=== PATIENT | male | born 1935 | race Caucasian/White ===

== ENCOUNTER 2024-01-26 05:56 | Inpatient (IN) | payer MEDICARE, BC ==
[~2024-01-26] VITALS: Ht 172.7 cm; Wt 79.9 kg
[2024-01-26 06:50] LABS: BASOPHILS % (AUTO) 0.6 % (0.0-2.0); EOSINOPHILS # (AUTO) 0.2 K/uL (0.0-0.7); EOSINOPHILS % (AUTO) 2.5 % (0.0-6.0); HEMATOCRIT 37 % (39-51); HEMOGLOBIN 12.3 g/dL (13.5-17.5); LYMPHOCYTES # (AUTO) 1.6 K/uL (0.8-4.8); LYMPHOCYTES % (AUTO) 20.4 % (20.0-44.0); MEAN CORPUSCULAR HEMOGLOBIN 32 PG (26.0-33.0); MEAN CORPUSCULAR HGB CONC 33 g/dl (31.0-36.0); MEAN CORPUSCULAR VOLUME 96 fL (80-96); MONOCYTES # (AUTO) 0.6 K/uL (0.1-1.30); MONOCYTES % (AUTO) 7.4 % (2.0-12.0); NEUTROPHILS # (AUTO) 5.3 K/uL (1.8-8.9); NEUTROPHILS % (AUTO) 69.1 % (43.0-81.0); PLATELET COUNT (AUTO) 204 K/uL (150-450); RED BLOOD CELL COUNT(AUTO) 3.92 MIL/uL (4.5-6.0); WHITE BLOOD COUNT (AUTO) 7.7 K/uL (4.3-11.0)
[2024-01-26 07:01] LABS: CALCIUM, SERUM 9.3 mg/dL (8.5-10.1); CARBON DIOXIDE 23 mmol/L (21-32); CHLORIDE 107 mmol/L (98-107); CREATININE 1.6 mg/dL (0.6-1.3); GLUCOSE 136 mg/dL (74-106); POTASSIUM 3.4 mmol/L (3.5-5.1); SODIUM SERUM 143 mmol/L (136-145); UREA NITROGEN, BLOOD 20 mg/dL (7-18)
[2024-01-26 07:02] LABS: INR 1.03 (0.91-1.10); PARTIAL THROMBOPLASTIN TIME 25.4 SEC (24.3-34.3); PROTHROMBIN TIME 10.9 SECS (9.2-11.1)
[2024-01-26 07:10] LABS: LACTIC ACID 3.4 mmol/L (0.4-2.0)
[2024-01-26] MEDS ORDERED: diphenhydrAMINE HCL 50 MG/ML VIAL ONE ×2 (07:10→08:00)
[2024-01-26] MEDS ORDERED: LORAZEPAM INJ 2 MG/ML VIAL ONE ×2 (07:11→08:01)
[2024-01-26 07:13] LABS: THYROID STIMULATING HORMONE 6.224 uIU/mL (0.358-3.74)
[2024-01-26 07:15] LABS: ALANINE AMINOTRANSFERASE 17 U/L (12-78); ALBUMIN 3.5 g/dL (3.4-5.0); ALKALINE PHOSPHATASE 71 U/L (46-116); ASPARTATE AMINOTRANSFERASE 15 U/L (15-37); BILIRUBIN,DIRECT 0.1 mg/dL (0.0-0.2); BILIRUBIN,TOTAL 0.5 mg/dL (0.2-1.0); TOTAL PROTEIN, SERUM 7.2 g/dL (6.4-8.2)
[2024-01-26] MEDS: diphenhydrAMINE HCL 50 MG/ML VIAL IV ONE ×2 (07:18→08:00)
[2024-01-26] MEDS: LORAZEPAM INJ 2 MG/ML VIAL IV ONE ×2 (07:18→08:00)
[2024-01-26 08:00] LABS: APPEARANCE,URINE CLEAR (CLEAR); BILIRUBIN,URINE NEGATIVE (NEGATIVE); BLOOD, URINE TRACE-INTA Ery/uL (NEGATIVE); COLOR,URINE YELLOW (YELLOW); KETONES,URINE NEGATIVE (NEGATIVE); LEUKOCYTE ESTERASE ,URINE NEGATIVE (NEGATIVE); NITRITE, URINE NEGATIVE (NEGATIVE); PH,URINE 5.5 (5.0-8.0); PROTEIN,URINE TRACE mg/dl (NEGATIVE); UGLUCOSE NEGATIVE (NEGATIVE); UROBILINOGEN,URINE 0.2 EU/dL (0.2)
[2024-01-26] MEDS: IV NS 0.9% 1,000 ML BAG IV ONE (08:00)
[2024-01-26 08:02] LABS: ADD URINE CULTURE NO; BACTERIA,URINE Rare /HPF (None Seen); RBC,URINE 0-2 /HPF (0-2); SQUAMOUS EPITHELIAL CELL,UR Few /HPF (None Seen); WBC,URINE 0-2 /HPF (0-3)
[2024-01-26] MEDS ORDERED: MIRT-90 PO (08:14)
[2024-01-26] MEDS ORDERED: ESCI20TA PO (08:14)
[2024-01-26] MEDS ORDERED: OMEP20CA15 PO (08:14)
[2024-01-26] MEDS ORDERED: MEMA1CAP3 PO (08:14)
[2024-01-26] MEDS ORDERED: LMFO1TAB PO (08:14)
[2024-01-26] MEDS ORDERED: DIVA125T32 PO (08:14)
[2024-01-26] MEDS ORDERED: TAMS-12 PO (08:14)
[2024-01-26 08:28] LABS: AMPHETAMINE, URINE NEGATIVE (NEGATIVE); BARBITURATE, URINE NEGATIVE (NEGATIVE); BENZODIAZEPINE, URINE NEGATIVE (NEGATIVE); CANNABINOID, URINE NEGATIVE (NEGATIVE); COCCAINE, URINE NEGATIVE (NEGATIVE); OPIATE, URINE NEGATIVE (NEGATIVE); PHENCYCLIDINE SCREEN,URINE NEGATIVE (NEGATIVE)
[2024-01-26] MEDS ORDERED: MAG HYDROX/AL HYDROX/SIMETH 30 ML UDC PO PRN (11:00)
[2024-01-26] MEDS: VALPROATE IV ONE (11:00)
[2024-01-26] MEDS ORDERED: ONDANSETRON HCL/PF 4 MG/2 ML VIAL IVP PRN (11:00)
[2024-01-26] MEDS ORDERED: MAGNESIUM HYDROXIDE 30 ML UDC PO PRN (11:00)
[2024-01-26] MEDS ORDERED: Z GUARD REMEDY 4 OZ OINT TP PRN (11:00)
[2024-01-26] MEDS: D5W IV ONE (11:00)
[2024-01-26] MEDS ORDERED: ACETAMINOPHEN 325 MG TABLET PO PRN (11:00)
[2024-01-26] MEDS: TAMSULOSIN 0.4 MG CAP.SR.24H PO SCH (12:30)
[2024-01-26] MEDS: ENOXAPARIN SODIUM 30 MG/0.3 ML DISP.SYRIN SQ SCH (12:45)
[2024-01-26] MEDS ORDERED: ENOXAPARIN SODIUM 30 MG/0.3 ML DISP.SYRIN ONE (12:50)
[2024-01-26] MEDS ORDERED: TAMSULOSIN 0.4 MG CAP.SR.24H ONE (12:51)
[2024-01-26 17:53] VITALS: BP 158/77; TEMP 99.3; O2SAT 100
[2024-01-26] MEDS: MIRTAZAPINE 15 MG TABLET PO SCH (18:36)
[2024-01-26] MEDS: MEMANTINE HCL 5 MG TABLET PO SCH (18:36)
[2024-01-26 21:00] VITALS: BP 145/71; TEMP 97.6; O2SAT 100
[2024-01-26] MEDS: OLANZAPINE 10 MG VIAL IM ONE (21:30)
[2024-01-26] MEDS: DONEPEZIL 5 MG TABLET PO SCH (21:59)
[2024-01-26] MEDS: POTASSIUM CHLORIDE 10 MEQ/50 ML PREMIXED IVPB FOR PERIPHERAL LINE IV ONE (23:15)
[2024-01-27 01:00] VITALS: BP 152/72; TEMP 97.7; O2SAT 100
[2024-01-27 05:00] VITALS: BP 114/76; TEMP 97.6; O2SAT 94
[2024-01-27 07:44] LABS: BASOPHILS # (AUTO) 0.1 K/uL (0.0-0.2); BASOPHILS % (AUTO) 0.7 % (0.0-2.0); EOSINOPHILS # (AUTO) 0.1 K/uL (0.0-0.7); EOSINOPHILS % (AUTO) 0.7 % (0.0-6.0); HEMATOCRIT 35 % (39-51); LYMPHOCYTES # (AUTO) 1.4 K/uL (0.8-4.8); LYMPHOCYTES % (AUTO) 14.8 % (20.0-44.0); MEAN CORPUSCULAR HEMOGLOBIN 33 PG (26.0-33.0); MEAN CORPUSCULAR HGB CONC 34 g/dl (31.0-36.0); MEAN CORPUSCULAR VOLUME 96 fL (80-96); MONOCYTES # (AUTO) 0.7 K/uL (0.1-1.30); MONOCYTES % (AUTO) 7.8 % (2.0-12.0); NEUTROPHILS # (AUTO) 7.1 K/uL (1.8-8.9); PLATELET COUNT (AUTO) 224 K/uL (150-450); RED BLOOD CELL COUNT(AUTO) 3.66 MIL/uL (4.5-6.0); RED CELL DISTRIBUTION WIDTH 14.5 % (11.5-15.0); WHITE BLOOD COUNT (AUTO) 9.3 K/uL (4.3-11.0)
[2024-01-27 07:48] LABS: CHOLESTEROL 236 mg/dL (<200); HDL CHOLESTEROL 48 mg/dL (40-60); LDL 135 mg/dL (0-99); TRIGLYCERIDES 127 mg/dL (30-150)
[2024-01-27 08:05] LABS: CALCIUM, SERUM 9.2 mg/dL (8.5-10.1); CARBON DIOXIDE 24 mmol/L (21-32); CHLORIDE 108 mmol/L (98-107); CREATININE 1.4 mg/dL (0.6-1.3); GLUCOSE 90 mg/dL (74-106); MAGNESIUM 2.1 mg/dL (1.8-2.4); PHOSPHORUS 2.8 mg/dL (2.5-4.9); POTASSIUM 3.5 mmol/L (3.5-5.1); SODIUM SERUM 143 mmol/L (136-145); UREA NITROGEN, BLOOD 16 mg/dL (7-18)
[2024-01-27] MEDS: PANTOPRAZOLE 40 MG VIAL IV SCH (08:40)
[2024-01-27 09:00] VITALS: BP 151/91; TEMP 98.2; O2SAT 97
[2024-01-27] MEDS ORDERED: OMEPRAZOLE 20 MG CAPSULE.DR PO SCH (09:00)
[2024-01-27] MEDS: ESCITALOPRAM OXALATE (10 MG) 10 MG TABLET PO SCH (09:00)
[2024-01-27] MEDS: DIVALPROEX SODIUM 125 MG TABLET.DR PO SCH (09:00)
[2024-01-27 13:00] VITALS: BP 146/78; TEMP 97.7; O2SAT 98
[2024-01-27 17:00] VITALS: BP 106/68; TEMP 98.2; O2SAT 98
[2024-01-27] MEDS: LORAZEPAM INJ 2 MG/ML VIAL IV PRN (19:13)
[2024-01-27 20:30] VITALS: BP 99/62; TEMP 97.7; O2SAT 98
[2024-01-28 04:00] VITALS: BP 147/69; TEMP 98.6; O2SAT 96
[2024-01-28] MEDS: DIVALPROEX SODIUM 250 MG TABLET.DR PO SCH (09:09)
[2024-01-28 11:37] LABS: BASOPHILS # (AUTO) 0.1 K/uL (0.0-0.2); BASOPHILS % (AUTO) 0.7 % (0.0-2.0); EOSINOPHILS # (AUTO) 0.2 K/uL (0.0-0.7); EOSINOPHILS % (AUTO) 3.1 % (0.0-6.0); HEMATOCRIT 37 % (39-51); HEMOGLOBIN 12.2 g/dL (13.5-17.5); LYMPHOCYTES # (AUTO) 1.5 K/uL (0.8-4.8); LYMPHOCYTES % (AUTO) 21.9 % (20.0-44.0); MEAN CORPUSCULAR HEMOGLOBIN 32 PG (26.0-33.0); MEAN CORPUSCULAR HGB CONC 33 g/dl (31.0-36.0); MEAN CORPUSCULAR VOLUME 97 fL (80-96); MONOCYTES # (AUTO) 0.6 K/uL (0.1-1.30); MONOCYTES % (AUTO) 8.5 % (2.0-12.0); NEUTROPHILS # (AUTO) 4.6 K/uL (1.8-8.9); NEUTROPHILS % (AUTO) 65.8 % (43.0-81.0); PLATELET COUNT (AUTO) 196 K/uL (150-450); RED BLOOD CELL COUNT(AUTO) 3.82 MIL/uL (4.5-6.0); RED CELL DISTRIBUTION WIDTH 14.5 % (11.5-15.0); WHITE BLOOD COUNT (AUTO) 7.1 K/uL (4.3-11.0)
[2024-01-28 11:52] LABS: CREATINE KINASE, TOTAL 881 U/L (39-308)
[2024-01-28 12:01] LABS: ALANINE AMINOTRANSFERASE 16 U/L (12-78); ALBUMIN 3.2 g/dL (3.4-5.0); ALKALINE PHOSPHATASE 65 U/L (46-116); ASPARTATE AMINOTRANSFERASE 41 U/L (15-37); BILIRUBIN,TOTAL 0.5 mg/dL (0.2-1.0); CARBON DIOXIDE 24 mmol/L (21-32); CHLORIDE 108 mmol/L (98-107); CREATININE 1.4 mg/dL (0.6-1.3); GLUCOSE 109 mg/dL (74-106); MAGNESIUM 2.1 mg/dL (1.8-2.4); PHOSPHORUS 2.8 mg/dL (2.5-4.9); POTASSIUM 3.3 mmol/L (3.5-5.1); SODIUM SERUM 140 mmol/L (136-145); TOTAL PROTEIN, SERUM 6.8 g/dL (6.4-8.2); UREA NITROGEN, BLOOD 20 mg/dL (7-18)
[2024-01-28 13:09] LABS: APPEARANCE,URINE TURBID (CLEAR); BILIRUBIN,URINE NEGATIVE (NEGATIVE); BLOOD, URINE NEGATIVE Ery/uL (NEGATIVE); COLOR,URINE YELLOW (YELLOW); KETONES,URINE NEGATIVE (NEGATIVE); LEUKOCYTE ESTERASE ,URINE NEGATIVE (NEGATIVE); NITRITE, URINE NEGATIVE (NEGATIVE); PROTEIN,URINE TRACE mg/dl (NEGATIVE); UGLUCOSE NEGATIVE (NEGATIVE); UROBILINOGEN,URINE 0.2 EU/dL (0.2)
[2024-01-28 13:27] LABS: CREATININE, URINE 335.9 MG/DL (30.0-125.0); URINE TOTAL PROTEIN 52.7 mg/dL (0-11.9)
[2024-01-28 13:39] LABS: ADD URINE CULTURE NO; BACTERIA,URINE None seen /HPF (None Seen); RBC,URINE NONE SEEN /HPF (0-2); URINE AMORPHOUS URATE Many /HPF (None Seen); WBC,URINE NONE SEEN /HPF (0-3)
[2024-01-28 13:42] LABS: EOSINOPHIL,URINE None Seen
[2024-01-28 13:44] LABS: SQUAMOUS EPITHELIAL CELL,UR None Seen /HPF (None Seen)
[2024-01-28 16:00] VITALS: BP 94/62; TEMP 98.5; O2SAT 95
[2024-01-28] MEDS: ATORVASTATIN 40 MG TABLET PO SCH (21:56)
[2024-01-29 00:06] VITALS: BP 94/62; TEMP 98.5; O2SAT 95
[2024-01-29 07:30] VITALS: BP 169/81; TEMP 97.5; O2SAT 97
[2024-01-29] MEDS: ASPIRIN 81 MG TAB.CHEW PO SCH (08:08)
[2024-01-29] MEDS: PANTOPRAZOLE 40 MG TABLET.DR PO SCH (08:08)
[2024-01-29 08:30] VITALS: BP 155/84
[2024-01-29 15:17] LABS: CALCIUM, SERUM 8.9 mg/dL (8.5-10.1); CARBON DIOXIDE 23 mmol/L (21-32); CHLORIDE 105 mmol/L (98-107); CREATININE 1.6 mg/dL (0.6-1.3); GLUCOSE 111 mg/dL (74-106); POTASSIUM 3.5 mmol/L (3.5-5.1); SODIUM SERUM 139 mmol/L (136-145); UREA NITROGEN, BLOOD 19 mg/dL (7-18)
[2024-01-29 20:00] VITALS: BP 149/69; TEMP 97.8; O2SAT 98
[2024-01-30 08:00] VITALS: BP 150/83; TEMP 98.2; O2SAT 98
[2024-01-30 08:07] LABS: CARBON DIOXIDE 24 mmol/L (21-32); CHLORIDE 106 mmol/L (98-107); CREATININE 1.5 mg/dL (0.6-1.3); GLUCOSE 87 mg/dL (74-106); POTASSIUM 3.8 mmol/L (3.5-5.1); SODIUM SERUM 142 mmol/L (136-145); UREA NITROGEN, BLOOD 19 mg/dL (7-18)
[2024-01-30 08:44] LABS: CREATINE KINASE, TOTAL 1052 U/L (39-308)
[2024-01-30 10:07] LABS: PTH, INTACT 16 pg/mL (15-65)
[2024-01-30 13:12] LABS: *SPE A/G RATIO 1.1 (0.7-1.7); *SPE ALBUMIN 3.2 g/dL (2.9-4.4); *SPE ALPHA-1-GLOBULIN 0.2 g/dL (0.0-0.4); *SPE ALPHA-2-GLOBULIN 0.5 g/dL (0.4-1.0); *SPE BETA GLOBULIN 1.1 g/dL (0.7-1.3); *SPE GLOBULIN, TOTAL 2.9 g/dL (2.2-3.9); *SPE M-SPIKE 0.4 g/dL (Not Observed); *SPE PROTEIN TOTAL 6.1 g/dL (6.0-8.5); *SPEGAMMA GLOBULIN 1.1 g/dL (0.4-1.8)
== END 2024-01-30 14:30 | disposition left against medical advice (07) | DRG 100 ==
LOC: ER 06:11 → TRANSITION 09:56 → TELE1 16:57 → MEDSG1 01-27 12:57 → MED 01-29 06:36
PROVIDERS: ADMIT Nurse Practitioner Acute Care; ATTEND Nurse Practitioner Acute Care
DX: R56.9 Unspecified convulsions (principal); G93.41 Metabolic encephalopathy; N17.0 Acute kidney failure with tubular necrosis; D68.59 Other primary thrombophilia; E87.20 Acidosis, unspecified; F02.83 Dementia in other diseases classified elsewhere, unspecified severity, with mood disturbance; I48.91 Unspecified atrial fibrillation; E86.0 Dehydration; G30.9 Alzheimer's disease, unspecified; N18.9 Chronic kidney disease, unspecified; I12.9 Hypertensive chronic kidney disease with stage 1 through stage 4 chronic kidney disease, or unspecified chronic kidney disease; E78.5 Hyperlipidemia, unspecified; E87.6 Hypokalemia; Z87.891 Personal history of nicotine dependence; Z95.0 Presence of cardiac pacemaker; Z95.5 Presence of coronary angioplasty implant and graft; F02.80 Dementia in other diseases classified elsewhere, unspecified severity, without behavioral disturbance, psychotic disturbance, mood disturbance, and anxiety; I25.10 Atherosclerotic heart disease of native coronary artery without angina pectoris; K21.9 Gastro-esophageal reflux disease without esophagitis; Z74.09 Other reduced mobility; E03.8 Other specified hypothyroidism; R53.1 Weakness; N40.0 Benign prostatic hyperplasia without lower urinary tract symptoms; F31.9 Bipolar disorder, unspecified
CPT/HCPCS: 36415; 70450-TC; 71045-TC; 76770-TC; 80048-TC; 80053-TC; 80061-TC; 80076-TC; 80164-TC; 81001; 82550-TC; 82553; 82570-TC; 83605-TC; 83735-TC; 83970; 84100-TC; 84155; 84165; 84300-TC; 84439-TC; 84443-TC; 84484-TC; 85025-TC; 85730-TC; 87040-TC; 92526; 92611-TC; 97110-TC; 97116-TC; 97530-TC; 97535-TC; A4223; C9113; G0378; J1200; J1650; J2060; J3480; J3490; J7050; J7060